=== PATIENT | female | born 1995 | race Caucasian/White ===

== ENCOUNTER 2017-12-28 15:41 | Emergency (ER) | payer BC ==
[2017-12-28] MEDS ORDERED: IBUPROFEN 200 MG TAB PO ONE (15:55)
[2017-12-28] MEDS ORDERED: METHOCARBAMOL 500 MG TAB PO ONE (15:55)
--- NOTE | 2017-12-28 16:04 | ER Report ---
History and Physical Time Seen By MD: 15:44 Hx. of Stated Complaint: NUMBNESS ALL OVER, MOSTLY RIGHT SIDE HPI/ROS CHIEF COMPLAINT: r arm numbness and neck pain HISTORY OF PRESENT ILLNESS: Pt woke up with pain in her neck a few days ago. Pt soon after started with r arm numbness and tingling. Pt denies any weakness. Has had an occasional headache but not currently. no hx of migraines for self but there is a family hx with mom. Pt used motrin with minimal relief. spoke to her mom who was concerned about possible blood clot in the arm causing the symptoms since family hx of blood clots. Pt has had no trauma. pt has no arm swelling. pt has full range of motion. came in to be checked for possible blood clot. no cp or sob. no leg weakness or numbness REVIEW OF SYSTEMS: Constitutional: No fever, no chills. Eyes: No discharge. ENT: No sore throat. Cardiovascular: No chest pain, no palpitations. Respiratory: No cough, no shortness of breath. Gastrointestinal: No abdominal pain, no vomiting. Genitourinary: No hematuria. Musculoskeletal: No back pain, + neck pain Skin: No rashes. Neurological: occasional headache, + r arm tingling Allergies: Coded Allergies: No Known Drug Allergies (Unverified , 12/28/17) Home Meds No Active Prescriptions or Reported Meds Past Medical/Surgical History Pmhx and pshx denies Reviewed Nurses Notes: Yes Old Medical Records Reviewed: Yes Hx Smoking: No Hx Substance Use Disorder: No Hx Alcohol Use: No Constitutional Vital Sign - Last 24 Hours 12/28/17 12/28/17 12/28/17 12/28/17 15:49 15:50 15:56 16:00 Temp 97.1 Pulse 81 79 Resp 14 12 B/P (MAP) 149/102 (118) 149/102 123/75 (91) Pulse Ox 100 O2 Delivery Room Air 12/28/17 12/28/17 12/28/17 12/28/17 16:11 16:26 16:30 16:39 Pulse ??? 70 Resp 10 B/P (MAP) 118/88 (98) 117/86 (96) Pulse Ox 97 Physical Exam General Appearance: The patient is alert, has no immediate need for airway protection and no signs of toxicity. Eyes: Pupils equal and round no pallor or injection, EOMI ENT: no pharyngeal erythema or exudates, Mucous membranes are moist Respiratory: There are no retractions, lungs are clear to auscultation. Cardiovascular: Regular rate and rhythm. pulses are equal and symmetrical Gastrointestinal: Abdomen is soft and non tender, no masses, bowel sounds normal, no guarding, no rigidity or rebound Neurological: Cranial nerves II-XII grossly intact, no sensory or motor loss, no dysmetria, no pronator drift, nl gait Skin: Warm and dry, no rashes. Musculoskeletal: Neck is supple with r lateral tenderness, Extremities are nontender, non swollen and have full range of motion. DIFFERENTIAL DIAGNOSIS: After history and physical exam differential diagnosis was considered for cervical radiculopathy, electrolyte abnl , atypical migraine , herniated disc Medical Decision Making Data Points Result Diagram: 12/28/17 1608 Laboratory Hematology Test 12/28/17 16:08 D-Dimer Quantitative (PE/DVT) < 0.27 ug/ml (0-0.50) Sodium Level 140 mmol/L (137-145) Potassium Level 4.1 mmol/L (3.5-5.0) Chloride Level 103 mmol/L (98-107) Carbon Dioxide Level 26 mmol/L (22-31) Blood Urea Nitrogen 12 mg/dl (7-18) Creatinine 0.80 mg/dl (0.52-1.04) Glomerular Filtration Rate Calc > 60.0 Random Glucose 86 mg/dl (75-110) Calcium Level 9.1 mg/dl (8.4-10.2) Chemistry Test 12/28/17 16:08 D-Dimer Quantitative (PE/DVT) < 0.27 ug/ml (0-0.50) Glomerular Filtration Rate Calc > 60.0 Calcium Level 9.1 mg/dl (8.4-10.2) Coagulation Test 12/28/17 16:08 D-Dimer Quantitative (PE/DVT) < 0.27 ug/ml EKG/Imaging Imaging loss of curvature and mild degenerative changes C7-T1 otherwise no acute fx ED Course/Re-evaluation ED Course check electrolytes due to numbness, d-dimer for low likely osman of clot and c spine. 12/28/2017 4:41:40 pm labs stable. will d/c to home with muscle relaxant. if symptoms continue may require mri to look for herniated dics. Decision to Disposition Date: Dec 28, 2017 Decision to Disposition Time: 16:42 Depart Departure Latest Vital Signs Vital Signs Date Time Temp Pulse Resp B/P (MAP) Pulse Ox O2 Delivery O2 Flow Rate FiO2 12/28/17 16:39 117/86 (96) 12/28/17 16:26 70 10 97 12/28/17 15:50 97.1 Room Air Impression: Primary Impression: Cervical radiculopathy Condition: Improved Disposition: HOME OR SELF-CARE Referrals: [facility] 5 Days New Scripts Methocarbamol (ROBAXIN-750) 750 Mg Tablet 750 MG PO Q4-6H Y for MUSCLE SPASMS, #21 TAB Prov: FRANCA LENTZ DO 12/28/17 Patient Instructions: Cervical Radiculopathy (GEN) Additional Instructions: Your symptoms are suggestive a nerve irritation. The nerves in your neck innervate you arm. Recommend: motrin (advil, ibuprofen) 600mg every 6 hours as needed for pain Robaxin one every 4-6 hours to help with neck stiffness/spasms. If symptoms do not improve in the next 5 days then recommend follow up with your family doctor or orthopedics for further evaluation. You may require MRI of cervical spine if not improving. FRANCA LENTZ DO Dec 28, 2017 16:04
--- NOTE | 2017-12-28 16:29 | RADIOLOGY IMAGING REPORT ---
[place] [facility] [place] NAME: Sharmin Cole : 1995 MR: [id number] V: [id number] EXAM DATE: ORDERING PHYSICIAN: FRANCA LENTZ TECHNOLOGIST: Location: [facility] - [place] Patient: Sharmin Cole : 1995 Visit/Account:[id number] Date of Sevice: 12/28/2017 CERVICAL SPINE 2 OR 3 VIEW INDICATION: With numbness down right arm. COMPARISON: None available FINDINGS: 4 views of the cervical spine. There is mild reverse curvature which could be due to posi tioning. The vertebral bodies are aligned. No indication of fracture or facet dislocation. No bony le sions. The C7-T1 level does show mild degenerative change including mild disc space narrowing, osteop hytes and facet changes. No other significant degenerative changes. The endplates are maintained. Pre vertebral soft tissues are normal. Lung apices are clear. IMPRESSION: No acute abnormality. Mild degenerative changes at C7-T1. Report Dictated By: Segundo Smallwood at 12/28/2017 4:23 PM Report E-Signed By: Segundo Smallwood at 12/28/2017 4:25 PM [id number]
[2017-12-28 16:39] VITALS: BP 117/86
[2017-12-28] MEDS ORDERED: METH-543 PO (16:44)
== END 2017-12-28 16:54 | disposition home or self-care (01) ==
LOC: ER 15:56
DX: M54.12 Radiculopathy, cervical region (principal)
CPT/HCPCS: 36415; 72040; 82310; 82374; 82435; 82565; 82947; 84132; 84295; 84520; 85379; 99283